=== PATIENT | male | born 1950 | race Caucasian/White ===

== ENCOUNTER 2022-04-05 11:32 | Inpatient (IN) | payer OTHER ==
[2022-04-05 12:23] VITALS: BMI 22.6
[2022-04-05] MEDS ORDERED: BENZOCAINE/MENTHOL (CHLORASEPTIC ) LOZENGE MM PRN (13:09)
[2022-04-05] MEDS ORDERED: ONDANSETRON *ODT* 4 MG TABLET SL PRN (13:09)
[2022-04-05] MEDS ORDERED: MAG HYDROX/AL HYDROX/SIMETH 30 ML UNIT-DOSE CUP PO PRN (13:09)
[2022-04-05] MEDS ORDERED: LOPERAMIDE HCL 2 MG CAPSULE PO PRN (13:09)
[2022-04-05] MEDS ORDERED: POLYETHYLENE GLYCOL (HEALTHYLAX) 3350 17 GM PACKET PO PRN (13:09)
[2022-04-05] MEDS ORDERED: MAGNESIUM HYDROX 2400MG/30ML ORAL SUSPENSION 30 ML CUP PO PRN (13:09)
[2022-04-05] MEDS ORDERED: DICYCLOMINE HCL 10 MG CAPSULE PO PRN (13:09)
[2022-04-05] MEDS ORDERED: NALOXONE HCL (KLOXXADO) 8 MG SPRAY NS PRN (13:09)
[2022-04-05] MEDS ORDERED: NICOTINE 10 MG CARTRIDGE (INHALER) IH PRN (13:09)
[2022-04-05] MEDS ORDERED: IBUPROFEN 400 MG TABLET (FP) PO PRN (13:09)
[2022-04-05] MEDS ORDERED: ACETAMINOPHEN 325 MG TABLET (FP) PO PRN (13:09)
[2022-04-05] MEDS ORDERED: NICOTINE POLACRILEX 2 MG GUM BUC PRN (13:09)
[2022-04-05] MEDS ORDERED: BISMUTH SUBSALICYLATE 524 MG/30 ML PO PRN (13:09)
[2022-04-05] MEDS ORDERED: hydrOXYzine PAMOATE 25 MG CAPSULE (FP) PO PRN (13:09)
[2022-04-05] MEDS: PRENATAL VITAMINS W/ FOLIC ACID TABLET (FP) PO SCH (16:48)
[2022-04-05] MEDS ORDERED: MELATONIN 5 MG TABLETS PO SCH (22:00)
[2022-04-05] MEDS: THIAMINE HCL 100 MG TABLET (FP) PO SCH (22:07)
[2022-04-05] MEDS: METHOCARBAMOL 500 MG TABLET PO PRN (22:07)
[2022-04-06] MEDS: PRENATAL VITAMINS W/ FOLIC ACID TABLET (FP) PO SCH (10:23)
[2022-04-06] MEDS: PANTOPRAZOLE 20 MG TABLET PO SCH (10:23)
[2022-04-06 12:27] LABS: HEMATOCRIT 42.1 % (35.4-49); MCH 31.3 pg (25.7-33.7); MCHC 33.2 g/dl (32.0-35.9); MEAN CELL VOLUME 94.2 fl (80-96); MEAN PLT VOLUME 8.3 fl (7.5-11.1); PLATELET COUNT 262 10^3/uL (134-434); RBC 4.47 M/mm3 (4.00-5.60); RDW 13.7 % (11.9-15.9); WHITE BLOOD COUNT 5.2 K/mm3 (4.0-10.0)
[2022-04-06 12:47] LABS: CALCIUM 9.2 mg/dL (8.5-10.1)
[2022-04-06 12:48] LABS: ALBUMIN 3.7 g/dl (3.4-5.0); BLOOD UREA NITROGEN 11.8 mg/dL (7-18)
[2022-04-06 12:51] LABS: CREATININE 0.9 mg/dL (0.55-1.3)
[2022-04-06 12:53] LABS: BILIRUBIN,TOTAL 2.1 mg/dL (0.2-1); TOT PROT 7.5 g/dl (6.4-8.2)
[2022-04-06] MEDS: THIAMINE HCL 100 MG TABLET (FP) PO SCH (22:09)
[2022-04-06] MEDS: SUVOREXANT 10 MG TABLET PO PRN (22:11)
[2022-04-06] MEDS: IBUPROFEN 600 MG TABLET (FP) PO PRN (22:12)
[2022-04-07] MEDS ORDERED: LORazepam 1 MG TABLET PO PRN (09:12)
[2022-04-07] MEDS: PRENATAL VITAMINS W/ FOLIC ACID TABLET (FP) PO SCH (10:29)
[2022-04-07] MEDS: LORazepam 1 MG TABLET PO SCH ×3 (10:30→22:13)
[2022-04-07] MEDS: PANTOPRAZOLE 20 MG TABLET PO SCH (10:30)
[2022-04-07] MEDS: amLODIPine BESYLATE 2.5 MG TABLET (FP) PO SCH (10:52)
[2022-04-07] MEDS: SUVOREXANT 10 MG TABLET PO PRN (22:13)
[2022-04-07] MEDS: THIAMINE HCL 100 MG TABLET (FP) PO SCH (22:13)
[2022-04-08] MEDS: LORazepam 1 MG TABLET PO SCH ×4 (06:04→22:00)
[2022-04-08] MEDS: ACETAMINOPHEN 325 MG TABLET (FP) PO PRN (06:10)
[2022-04-08] MEDS: amLODIPine BESYLATE 2.5 MG TABLET (FP) PO SCH (10:31)
[2022-04-08] MEDS: PANTOPRAZOLE 20 MG TABLET PO SCH (10:31)
[2022-04-08] MEDS: PRENATAL VITAMINS W/ FOLIC ACID TABLET (FP) PO SCH (10:31)
[2022-04-08] MEDS: IBUPROFEN 600 MG TABLET (FP) PO PRN (11:56)
[2022-04-08] MEDS: SUVOREXANT 10 MG TABLET PO PRN (21:57)
[2022-04-08] MEDS: THIAMINE HCL 100 MG TABLET (FP) PO SCH (21:57)
[2022-04-09] MEDS ORDERED: LORazepam 0.5 MG TABLET PO PRN
[2022-04-09] MEDS: LORazepam 0.5 MG TABLET PO SCH ×2 (05:49→10:21)
[2022-04-09] MEDS: METHOCARBAMOL 500 MG TABLET PO PRN (05:51)
[2022-04-09] MEDS: ACETAMINOPHEN 325 MG TABLET (FP) PO PRN ×2 (05:53→10:55)
[2022-04-09 09:08] VITALS: BP 151/98; PULSE 86; RESP 17; TEMP 97.3
[2022-04-09] MEDS: PRENATAL VITAMINS W/ FOLIC ACID TABLET (FP) PO SCH (10:21)
[2022-04-09] MEDS: amLODIPine BESYLATE 2.5 MG TABLET (FP) PO SCH (10:21)
[2022-04-09] MEDS: PANTOPRAZOLE 20 MG TABLET PO SCH (10:21)
[2022-04-10] MEDS ORDERED: LORazepam 0.5 MG TABLET PO ONE (05:00)
== END 2022-04-09 12:55 | disposition home or self-care (01) | DRG 897 ==
LOC: YASAS 11:32 → Y6N 14:19
PROVIDERS: ADMIT Allergy & Immunology; ATTEND Allergy & Immunology
PROC: HZ2ZZZZ Detoxification Services for Substance Abuse Treatment (ICD-10-PCS; principal; 2022-04-05)
DX: F10.230 Alcohol dependence with withdrawal, uncomplicated (principal); F17.210 Nicotine dependence, cigarettes, uncomplicated; F10.282 Alcohol dependence with alcohol-induced sleep disorder; K21.9 Gastro-esophageal reflux disease without esophagitis; Z87.438 Personal history of other diseases of male genital organs; Z88.0 Allergy status to penicillin; Z88.6 Allergy status to analgesic agent
CPT/HCPCS: 36415; 80053; 82140; 82247; 85027; 86780; 93005; 93010; C9803-CS; U0003; U0005